=== PATIENT | male | born 1945 | race Caucasian/White ===

== ENCOUNTER 2018-03-06 14:16 | Emergency (ER) | payer OTHER ==
[2018-03-06 14:29] VITALS: BP 134/78; PULSE 76; TEMP 98.7; BMI 28.8
--- NOTE | 2018-03-06 14:35 | PDOC ---
History of Present Illness <Анна Avalos - Last Filed: 03/06/18 16:59> - General History Source: Patient, Family () Exam Limitations: No Limitations - History of Present Illness Initial Comments: The patient is a 72M with a history of HTN and reported syncopal falls (x2) who presents after falling while running at a baseball game approximately 1 hr [employer]. The patient states that he was running, felt his knee go out, and then fell forward onto his hands. He denies LOC, remembers falling, but reports feeling ' woozy' afterwards. He states that his right knee was difficult to straighten on scene, but he was able to slowly do so with the assistance of EMS. He denies any change in sensation since time of injury. He endorses full ROM of his right ankle but is unable to fully flex his knee 2/2 pain (limited to approx 30 degrees). He denies previous injury or surgery to the affected knee. 03/06/18 14:33 <[place] Hill - Last Filed: 03/06/18 17:33> - General Chief Complaint: Syncope/Near Syncope Stated Complaint: KNEE DISLOCATION Time Seen by Provider: 03/06/18 14:29 Past History <Анна Avalos - Last Filed: 03/06/18 16:59> - Past Medical History Anemia: No Asthma: No Cancer: No Cardiac Disorders: No CVA: No COPD: No CHF: No Dementia: No Diabetes: No GI Disorders: No Disorders: No HTN: No Hypercholesterolemia: Yes Liver Disease: No Seizures: No Thyroid Disease: No - Surgical History Abdominal Surgery: No Appendectomy: No Cardiac Surgery: No Cholecystectomy: No Lung Surgery: No Neurologic Surgery: No Orthopedic Surgery: No - Suicide/Smoking/Psychosocial Hx Smoking History: Never smoked Have you smoked in the past 12 months: No Information on smoking cessation initiated: No Hx Alcohol Use: No Drug/Substance Use Hx: No Substance Use Type: None Hx Substance Use Treatment: No <[place] - Last Filed: 03/06/18 17:33> - Past Medical History Allergies/Adverse Reactions: Allergies Allergy/AdvReac Type Severity Reaction Status Date / Time No Known Allergies Allergy Verified 10/12/11 14:02 Home Medications: Ambulatory Orders Simvastatin 0 mg PO DAILY 07/08/18 Review of Systems - Review of Systems Able to Perform ROS?: Yes Is the patient limited Kazakh proficient: No Constitutional: No: Chills, Diaphoresis, Fever, Weakness HEENTM: No: Blurred Vision, Throat Pain, Throat Swelling, Difficulty Swallowing Respiratory: No: Cough, Shortness of Breath Cardiac (ROS): No: Chest Pain, Palpitations, Syncope ABD/GI: No: Abdominal Distended, Nausea, Vomiting : No: Dysuria, Hematuria Musculoskeletal: Yes: See HPI Integumentary: No: Pruritus, Rash Neurological: No: Headache, Numbness, Paresthesia Psychiatric: No: Anxiety, Depression Endocrine: No: Intolerance to Cold, Intolerance to Heat Hematologic/Lymphatic: No: Easy Bruising, Bleeding Diathesis <[place] - Last Filed: 03/06/18 17:33> *Physical Exam - Vital Signs Last Vital Signs Temp Pulse Resp BP Pulse Ox 98.7 F 76 18 134/78 96 03/06/18 14:27 03/06/18 14:27 03/06/18 14:27 03/06/18 14:27 03/06/18 14:27 <Анна Avalos - Last Filed: 03/06/18 16:59> - Vital Signs Last Vital Signs Temp Pulse Resp BP Pulse Ox 98.7 F 76 18 134/78 96 03/06/18 14:27 03/06/18 14:27 03/06/18 14:27 03/06/18 14:27 03/06/18 14:27 - Physical Exam General Appearance: Yes: Nourished. No: Apparent Distress HEENT: positive: EOMI, SHASHA, Normal ENT Inspection Neck: positive: Trachea midline, Supple. negative: Lymphadenopathy (R), Lymphadenopathy (L) Respiratory/Chest: positive: Lungs Clear, Normal Breath Sounds Cardiovascular: positive: Regular Rhythm, Regular Rate. negative: Murmur Vascular Pulses: Femoral (R): 2+, Femoral (L): 2+, Carotid (R): 2+, Carotid (L) : 2+, Dorsalis-Pedis (R): 2+, Doralis-Pedis (L): 2+ Comments:: PT 2+ bilaterally 03/06/18 15:54 Gastrointestinal/Abdominal: positive: Normal Bowel Sounds, Soft. negative: Tender, Distended, Guarding, Rebound Musculoskeletal: positive: Other (Right knee effusion; patella does not move with quadracep flexion). negative: CVA Tenderness Extremity: positive: Normal Capillary Refill. negative: Normal Range of Motion (Right knee reduced ROM 2/2 pain/injury), Cyanosis, Delayed Capillary Refill Integumentary: positive: Normal Color, Warm Neurologic: positive: water filter cleaner II-XII NML intact, Fully Oriented, Normal Mood/Affect , Normal Response, Motor Strength 5/5 (Right knee extesion 4/5 2/2 pain) <[place] - Last Filed: 03/06/18 17:33> ED Treatment Course - LABORATORY CBC & Chemistry Diagram: 03/06/18 15:20 03/06/18 15:28 - ADDITIONAL ORDERS Additional order review: Laboratory Results 03/06/18 03/06/18 15:28 15:28 PT with INR 12.50 INR 1.11 PTT (Actin FS) 23.1 L Sodium 142 Potassium 4.8 Chloride 109 H Carbon Dioxide 29 Anion Gap 4 L BUN 25 H Creatinine 1.2 Creat Clearance w eGFR 59.18 Random Glucose 78 D Calcium 8.9 Total Bilirubin 0.4 AST 24 ALT 34 Alkaline Phosphatase 54 Total Protein 6.8 Albumin 3.7 03/06/18 15:20 RBC 4.37 MCV 89.2 MCHC 34.9 RDW 13.6 MPV 9.9 Neutrophils % 86.9 H Lymphocytes % 6.3 L Monocytes % 5.5 Eosinophils % 0.8 Basophils % 0.5 - RADIOLOGY Radiology Studies Ordered: Category Date Time Status CHEST - PA [RAD] Stat Radiology 03/06/18 15:03 Taken KNEE 2 POS-RIGHT [RAD] Stat Radiology 03/06/18 15:03 Taken - Medications Given in the ED: ED Medications Discontinued Medications Generic Name Dose Route Start Last Admin Trade Name Freq PRN Reason Stop Dose Admin Sodium Chloride 1,000 ml 03/06/18 15:04 03/06/18 15:28 Normal Saline - IV 03/06/18 15:05 1,000 ml ONCE ONE Administration <Анна Avalos - Last Filed: 03/06/18 16:59> - LABORATORY CBC & Chemistry Diagram: 03/06/18 15:20 03/06/18 15:28 <[place] - Last Filed: 03/06/18 17:33> Medical Decision Making - Medical Decision Making The patient is a 72M who presented s/p fall while running. Ddx: dislocation, right knee fracture, soft tissue injury, tendon injury/rupture ED course: -BMP, CBC, ECG -R knee XR without evidence of fracture Dispo: Patient determined to be appropriate for discharge. Patient should follow up with his Orthopedic Surgeon within 48 hours of discharge. Patient given injury care instructions (keep knee elevated, ice 20 min off and 20 min off, keep knee immobilizer in place). Return precautions given. 03/06/18 17:03 <[place] - Last Filed: 03/06/18 17:33> *DC/Admit/Observation/Transfer - Discharge Dispostion Decision to Admit order: No <Анна Avalos - Last Filed: 03/06/18 16:59> - Discharge Dispostion Decision to Admit order: No <[place] - Last Filed: 03/06/18 17:33> Diagnosis at time of Disposition: Right knee injury Qualifiers: Encounter type: initial encounter Qualified Code(s): S89.91XA - Unspecified injury of right lower leg, initial encounter - Discharge Dispostion Disposition: HOME Condition at time of disposition: Stable - Referrals Referrals: Robbi Burris MD [Primary Care Provider] - parviz gonzalez [Other] Randy Singh MD [Staff Physician] - - Patient Instructions Printed Discharge Instructions: How to Use Crutches, DI for Knee Sprain, How to Prevent Falls, DI for Knee Effusion Additional Instructions: You were seen today for fall and right knee injury. You were not found to have an acute fracture; however, you likely have a tendon rupture/injury. You should ice the affected knee, 20 minutes on and 20 minutes off. Keep your knee elevated. Follow up with your Orthopedic Surgeon within the next 48 hours. Return to the Emergency Department if you have numbnes/tingling in the right leg , worsening pain, redness over the joint, or fevers.
--- NOTE | 2018-03-06 14:40 | PDOC ---
Attending Attestation - HPI HPI: 03/06/18 15:26 The patient is a 72 year old male with hyperlipidemia who presents to the ED s/ p right knee injury. Patient was playing wiffle ball and running the bases when his leg gave out. The patient reports he did not fall nor hit his head, but tried to get up when his knee locked. He was assisted by the medics on site and EMS was called. In the ED, the patient complains of pain to his right knee and is unable to bend it or bear weight. Denies any numbness, tingling, or focal neurological deficits. Denies any fevers or chills. - Physicial Exam PE: 03/06/18 15:26 GENERAL: Awake, alert, and fully oriented, in no acute distress HEAD: No signs of trauma EYES: PERRLA, EOMI, sclera anicteric, conjunctiva clear ENT: Auricles normal inspection, hearing grossly normal, nares patent, oropharynx clear without exudates. Moist mucosa NECK: Normal ROM, supple, no lymphadenopathy, JVD, or masses LUNGS: Breath sounds equal, clear to auscultation bilaterally. No wheezes, and no crackles HEART: Regular rate and rhythm, normal S1 and S2, no murmurs, rubs or gallops ABDOMEN: Soft, nontender, normoactive bowel sounds. No guarding, no rebound. No masses EXTREMITIES: (+)palpable defect at quadriceps insertion into patella, flexion is 3 degrees, ballotable pain in patella with joint effusion. No clubbing or cyanosis. No cords or erythema. NEUROLOGICAL: Cranial nerves II through XII grossly intact. Normal speech, normal gait SKIN: Warm, Dry, normal turgor, no rashes - Medical Decision Making 03/06/18 15:28 Documentation prepared by Amisha Sheppard, acting as medical biller for Анна Avalos DO. <Amisha Sheppard - Last Filed: 03/06/18 15:26> - Resident Resident Name: [place] Hill - ED Attending Attestation I have performed the following: I have examined & evaluated the patient, The case was reviewed & discussed with the resident, I agree w/resident's findings & plan, Exceptions are as noted - Medical Decision Making 03/06/18 14:40 I, Dr. Анна Avalos DO, attest that this document has been prepared under my direction and personally reviewed by me in its entirety. I further attest, that it accurately reflects all work, treatment, procedures and medical decision -making performed by me. 03/06/18 15:36 a/p: 72yo male with R knee injury while playing wiffleball -knee gave out -defect to quad tendon -concern for quad tendon rupture -will obtain xrays -knee immobilizer -will discuss with ortho 03/06/18 15:[address] Singh - recommends xray, knee immobilizer, crutches, outpt follow up -call back if fx -pt updated on the plan -neurovasc intact 03/06/18 16:44 no acute fx on xray - soft tissue swelling, effusion -will place in amanda wrap and knee immobilizer crutches pt has an orthopedic surgeon 03/06/18 16:58 pt up and walking on crutches stable for d/c to home has an orthopedist - Dr. Soriano that he requests to follow up with answered all questions pt states he takes advil or tylenol for pain <Анна Avalos - Last Filed: 03/06/18 16:59> Heart Score/ECG Review - ECG Intrepretation Comment:: 03/06/18 15:37 sinus at 71, L axis, t wave inversion I, avl, unchanged from prior ekg <Анна Avalos - Last Filed: 03/06/18 16:59>
[2018-03-06] MEDS ORDERED: SODIUM CHLORIDE 0.9% 1000 ML INFUS.BAG IV ONE (15:04)
[2018-03-06 15:36] LABS: BASO % 0.5 % (0-2.0); EOS % 0.8 % (0-4.5); HEMOGLOBIN 13.6 GM/dL (11.7-16.9); LYMPH % 6.3 % (8-40); MCH 31.1 pg (25.7-33.7); MCHC 34.9 g/dl (32.0-35.9); MEAN CELL VOLUME 89.2 fl (80-96); MEAN PLT VOLUME 9.9 fl (7.5-11.1); MONO % 5.5 % (3.8-10.2); NEUT % 86.9 % (42.8-82.8); PLATELET COUNT 166 K/MM3 (134-434); RBC 4.37 M/mm3 (4.00-5.60); RDW 13.6 % (11.9-15.9); WHITE BLOOD COUNT 9.7 K/mm3 (4.0-10.0)
[2018-03-06 15:55] LABS: INR 1.11 (0.82-1.09); PROTHROMBIN TIME (PATIENT) 12.5 SEC (9.7-13.0)
[2018-03-06 15:58] LABS: ACTIVATED PTT 23.1 SECONDS (25.2-36.5)
[2018-03-06 16:04] LABS: ALBUMIN 3.7 g/dl (3.4-5.0); ANION GAP 4 (8-16); BILIRUBIN,TOTAL 0.4 mg/dL (0.2-1.0); BLOOD UREA NITROGEN 25 mg/dL (7-18); CALCIUM 8.9 mg/dL (8.5-10.1); CHLORIDE 109 mmol/L (98-107); CO2 29 mmol/L (21-32); CREATININE 1.2 mg/dL (0.7-1.3); GLUCOSE,RANDOM 78 mg/dL (74-106); POTASSIUM 4.8 mmol/L (3.5-5.1); SGOT/AST 24 U/L (15-37); SGPT/ALT 34 U/L (12-78); SODIUM 142 mmol/L (136-145); TOT PROT 6.8 g/dl (6.4-8.2)
[2018-03-06 16:05] LABS: ALK PHOS 54 U/L (45-117)
[2018-03-06] MEDS ORDERED: IBUPROFEN 600 MG TABLET (FP) PO ONE (16:59)
--- NOTE | 2018-03-07 09:10 | EKG ---
Test Reason : Blood Pressure : / mmHG Vent. Rate : 071 BPM Atrial Rate : 071 BPM P-R Int : 170 ms QRS Dur : 106 ms QT Int : 374 ms P-R-T Axes : 040 -38 108 degrees QTc Int : 406 ms NORMAL SINUS RHYTHM LEFT AXIS DEVIATION LVH WITH REPOLARIATION ABNORMALITY ABNORMAL ECG WHEN COMPARED WITH ECG OF 17-OCT-2015 15:06, MINIMAL CRITERIA FOR SEPTAL INFARCT ARE NOW PRESENT INVERTED T WAVES HAVE REPLACED NONSPECIFIC T WAVE ABNORMALITY IN LATERAL LEADS Confirmed by SHANNAN LOPEZ MD ([id number]) on 03/07/2018 9:10:03 AM Referred By: Confirmed By:SHANNAN LOPEZ MD
== END 2018-03-06 17:49 | disposition home or self-care (01) ==
LOC: JER 14:16
PROC: 2W3QXYZ Immobilization of Right Lower Leg using Other Device (ICD-10-PCS; principal; 2018-03-06)
DX: S89.81XA Other specified injuries of right lower leg, initial encounter (principal); W18.39XA Other fall on same level, initial encounter; Y93.64 Activity, baseball; Y92.320 Baseball field as the place of occurrence of the external cause; Y99.8 Other external cause status; E78.00 Pure hypercholesterolemia, unspecified
CPT/HCPCS: 29530; 36415; 71045-TC-FY; 73560-TC-RT-FY; 80053; 85025; 85610; 85730; 86850; 86900; 86901; 93005; 93010; 99285-25; J7030